=== PATIENT | male | born 1940 | race Caucasian/White ===

== ENCOUNTER 2016-05-07 06:24 | Inpatient (IN) | payer MEDICARE, BC ==
[2016-04-29 16:30] LABS: CALCIUM, SERUM 8.5 MG/DL (8.5-10.4); CHLORIDE, SERUM 108 MMOL/L (96-112); CO2 (CARBON DIOXIDE) 28 MMOL/L (24-34); CREATININE 1.16 MG/DL (0.70-1.30); GFR AFRICAN AMERICAN 72 ML/MIN (>=60); GFR NON AFRICAN AMERICAN 62 ML/MIN (>=60); GLUCOSE, SERUM 92 MG/DL (60-99); POTASSIUM, SERUM 3.9 MMOL/L (3.5-5.3); SODIUM, SERUM 143 MMOL/L (135-148)
[2016-04-29 16:34] LABS: BUN (BLOOD UREA NITROGEN) 24 MG/DL (6-23)
[2016-04-29 16:37] LABS: HEMATOCRIT 41.7 % (40.0-51.0); HEMOGLOBIN 14.1 g/dL (13.6-17.8)
--- NOTE | ~2016-05-07 | OP ---
Record Of Operation [facility] [address] [place]. [address] NAME: NATALIA INIGUEZ : 44 STATUS : ADM IN PAT#: [id number] AGE: 76 ADM/REG DATE : 05/07/16 MR#: [id number] REPORT SERV DATE: 05/07/16 DICTATED BY: RICARDO LIVINGSTON DATE: 05/07/16 REPORT STATUS : Draft TRANSCRIBED BY: MODL DATE: 05/07/16 DATE OF PROCEDURE: 05/07/2016 PREOPERATIVE DIAGNOSIS: Prostate cancer. POSTOPERATIVE DIAGNOSIS: Prostate cancer. PROCEDURE: Robotic-assisted laparoscopic radical prostatectomy with right laparoscopic pelvic lymph node dissection. SURGEON: Ricardo Livingston M.D. [employer] SUPERINTENDENT: JUAN Miller. ANESTHESIA: General. PREOPERATIVE INDICATIONS: 76-year-old male with a positive family history of prostate cancer, presented in October 2013 with a PSA of 4.8. Biopsies disclosed a Cristel 6 prostate cancer at the apex bilaterally. He elected active surveillance. He had progression of his PSA to 6.7 in October 2015 and surveillance biopsies identified a Cristel 7, 3+ 4 bilaterally. Three cores were positive on the right and one core at the left base. After reviewing his options, risks, alternatives, and benefits, he elected surgical management preferring a robotic approach. DESCRIPTION OF OPERATIVE PROCEDURE: Following adequate general anesthesia, the patient was placed in a modified lithotomy position well padded and secured to the table and placed in a steep Trendelenburg position. He was noted to be safely secured to the table and was returned to a level position where he was prepped and draped in the usual sterile fashion. A 16-Andorran catheter was placed in the bladder from the operative field. A pneumoperitoneum was achieved with a Veress needle. A 12 mm port was placed in the left upper quadrant with the Optiview system. A camera was placed into the abdomen, the abdomen inspected, and there were no abnormal findings. Under direct vision, the 3 robotic ports were placed as well as a left lower quadrant 5 mm port and a periumbilical 12 mm port. The patient was returned to a Trendelenburg position and docked to the robot. The bladder was taken down by incising laterally along the median umbilical ligaments to the level of the vas deferens bilaterally with the electrocautery obdulio. The space of Retzius was developed bluntly. Fat was dissected off the anterior surface of the prostate sharply. The endopelvic fascia was incised bilaterally and the levator muscle swept off the lateral surface of the prostate bilaterally. The dorsal vein complex was dissected out and controlled and divided with an endovascular IWONA stapler. The bladder neck was incised at its junction with the base of the prostate with the electrocautery spatula. The bladder was entered. The catheter was grasped with a ProGrasp grasper and used for anterior retraction on the prostate. The posterior bladder neck was developed and incised with the electrocautery spatula and a plane was bluntly developed Record Of Operation [facility] [address] [place]. [address] NAME: NATALIA INIGUEZ : 44 STATUS : ADM IN [facility]#: [id number] AGE: 76 ADM/REG DATE : 05/07/16 MR#: [id number] REPORT SERV DATE: 05/07/16 DICTATED BY: RICARDO LIVINGSTON DATE: 05/07/16 REPORT STATUS : Draft TRANSCRIBED BY: TIFFANIE DATE: 05/07/16 between the posterior bladder neck and prostate. Anterior Denonvilliers fascia was incised to expose the vas deferens and seminal vesicles. The vas deferens were dissected out bluntly, divided sharply, and the ends of the vas deferens grasped with the ProGrasp grasper for additional anterior retraction on the prostate. The seminal vesicles were dissected out bluntly, their blood supply controlled with interlocking clips and then divided sharply at their base. The bladder neck was inspected and did require some minor reconstruction with two [id number] 3-0 Vicryl sutures at the 3 and 9 o'clock position. Care was taken to avoid the ureteral orifices. Posterior Denonvilliers fascia was incised and a plane was bluntly developed between the rectum and prostate. The levator fascia was incised bilaterally and the neurovascular bundle was bluntly and easily dissected away from the posterolateral surface of the prostate bilaterally. The pedicles were controlled with interlocking clips and the specimen divided sharply with a round-tip scissors. The urethra was dissected out with the round-tip scissors. The dorsal vein complex was secured to the pubic periosteum with a figure-of- eight 2-0 Monocryl suture. The urethra was then divided sharply at the prostatourethral junction. The catheter was withdrawn. The posterior urethra was divided as well as the remaining apical attachments and the prostate was freed. A right laparoscopic pelvic lymph node dissection was performed with the margins of dissection being the anterior surface of the external iliac vein, the bifurcation of the external and internal iliac artery and the pelvic sidewall of both anterior and posterior to the obturator nerve. Margins were controlled with interlocking clips and the specimen divided sharply with a round-tip scissors. The nate specimen and prostate were placed in an EndoCatch sac and placed out of the view of the operative field. The pelvis was irrigated with sterile water and antibiotic solution and carefully inspected. There was excellent hemostasis and no apparent rectal injury. Posterior Denonvilliers fascia was reapproximated with posterior urethral plate with a running 3-0 V-Loc suture in a Santi stitch fashion. The urethrovesical anastomosis was performed with a running 3-0 V-Loc suture over a 20-Andorran catheter. The balloon was filled with 10 mL of sterile water. The bladder was irrigated with sterile water and there was a watertight anastomosis. A 19 Irineo drain was passed through one of the robotic ports and placed into the pelvis. The port was removed with its exit site demonstrating good hemostasis. The drain was fixed to the skin with 2-0 Prolene suture. The patient was de-docked from the robot and returned to a level position. The remaining trocars were removed under direct vision with their exit sites demonstrating good hemostasis. The periumbilical port was used to guide a transverse fascial incision to allow intact retrieval of the specimen. This was closed with 6 interrupted #1 Ethibond sutures. The periumbilical wound and port sites were irrigated with antibiotic solution and skin edges reapproximated with skin clips. The drain was left to grenade suction. The catheter was left to gravity drainage. Bandages were applied and the procedure was concluded. He was awakened from his anesthesia, had tolerated it well, and transferred to the recovery room in satisfactory condition. CLJ/MODL Record Of Operation [facility] [address]. [address] NAME: NATALIA INIGUEZ : 44 STATUS : ADM IN [facility]#: [id number] AGE: 76 ADM/REG DATE : 05/07/16 MR#: [id number] REPORT SERV DATE: 03/21/17 DICTATED BY: RICARDO LIVINGSTON DATE: 05/07/16 REPORT STATUS : Draft TRANSCRIBED BY: DUDLEYL DATE: 05/07/16 Ricardo Livingston M.D. / [id number] CC: Ricardo Livingston M.D.
[~2016-05-07 06:24] MED LIST: ASAB PO; BACDS PO; BACTROINT TOP; C5 PO; CLARIT10 PO; CORDARONE PO; COZ25 PO; LEVAQUIN750 MG PO; LOP25 PO; MIRALAXPKT PO; NORV10 PO; OXYCOD PO; PCET PO; PRAVACHOL40 MG PO; PRIN10 PO; RANITIDINE300 MG PO; ZYRTEC ALLGY10 MG PO
[2016-05-07 13:02] LABS: CREATININE 1.22 MG/DL (0.70-1.30); POTASSIUM, SERUM 4.3 MMOL/L (3.5-5.3)
[2016-10-28] MEDS ORDERED: COZ25 PO (09:37)
== END 2016-05-08 15:06 | disposition home or self-care (01) | DRG 708 ==
LOC: SDC/OF 06:24 → PACU 12:22 → 4SO 13:38
PROVIDERS: Urology
PROC: 0VT04ZZ Resection of Prostate, Percutaneous Endoscopic Approach (ICD-10-PCS; principal; 2016-05-07 07:30)
PROC: 07BC4ZX Excision of Pelvis Lymphatic, Percutaneous Endoscopic Approach, Diagnostic (ICD-10-PCS; principal; 2016-05-07 07:30)
PROC: 0VBQ4ZZ Excision of Bilateral Vas Deferens, Percutaneous Endoscopic Approach (ICD-10-PCS; principal; 2016-05-07 07:30)
PROC: 0VT34ZZ Resection of Bilateral Seminal Vesicles, Percutaneous Endoscopic Approach (ICD-10-PCS; principal; 2016-05-07 07:30)
PROC: 8E0W4CZ Robotic Assisted Procedure of Trunk Region, Percutaneous Endoscopic Approach (ICD-10-PCS; principal; 2016-05-07 07:30)
DX: C61 Malignant neoplasm of prostate (principal); I35.0 Nonrheumatic aortic (valve) stenosis; I10 Essential (primary) hypertension; K21.9 Gastro-esophageal reflux disease without esophagitis; Z79.82 Long term (current) use of aspirin
CPT/HCPCS: 80048; 82565; 84132; 85014; 85018; 88307; 88309; 88341; 88342; 93005; A9270-GY; J0690; J1885; J2250; J2405; J2710; J2795; J3010

== ENCOUNTER 2016-10-29 06:35 | Day surgery (SDC) | payer MEDICARE, BC ==
[~2016-10-29] VITALS: Ht 185.4 cm; Wt 89.8 kg
--- NOTE | ~2016-10-29 | EGD ---
EGD REPORT [facility] [address] [address] NAME: NATALIA INIGUEZ : 44 STATUS : REG [facility]#: [id number] AGE: 76 ADM/REG DATE : 10/29/16 MR#: [id number] REPORT SERV DATE: 10/29/16 DICTATED BY: MADIE MILTON DATE: 10/29/16 REPORT STATUS : Draft TRANSCRIBED BY: [employer] DATE: 10/29/16 Endoscopy Center Patient Name: Natalia Iniguez Date of : 1940 Attending MD: MADIE MILTON MD Procedure Date No Time: 10/29/2016 Procedure: Colonoscopy Indications: High risk colon cancer surveillance: Personal history of colonic polyps, FH of Colon Cancer - 1st degree relative Referring MD: SANDRA PLATA Medicines: as per anesthesia Complications: No immediate complications. Procedure: Pre-Anesthesia Assessment: - ASA Grade Assessment: III - A patient with severe systemic disease. After I obtained informed consent, the scope was passed under direct vision. Throughout the procedure, the patient's blood pressure, pulse, and oxygen saturations were monitored continuously. The [facility] [id number] was introduced through the anus and advanced to the cecum, identified by appendiceal orifice and ileocecal valve. The colonoscopy was performed without difficulty. The patient tolerated the procedure. The quality of the bowel preparation was adequate to identify polyps. Findings: The perianal and digital rectal examinations were normal. A few small and large-mouthed diverticula were found in the sigmoid colon and in the descending colon. Internal hemorrhoids were found during endoscopy and were mild. Impression: - Diverticulosis in the sigmoid colon and in the descending colon. - Internal hemorrhoids. Recommendation: - Repeat colonoscopy in 5 years for surveillance. Procedure Code(s): --- Professional --- 29026, Colonoscopy, flexible, proximal to splenic flexure; diagnostic, with or without collection of specimen(s) by brushing or washing, with or without colon decompression (separate procedure) Diagnosis Code(s): --- Professional --- K64.8, Other hemorrhoids [address] [facility] [address] NAME: NATALIA INIGUEZ : 44 STATUS : REG [facility]#: [id number] AGE: 76 ADM/REG DATE : 10/29/16 MR#: [id number] REPORT SERV DATE: 10/29/16 DICTATED BY: MADIE MILTON. DATE: 10/29/16 REPORT STATUS : Draft TRANSCRIBED BY: [employer] DATE: 10/29/16 K57.30, Diverticulosis of large intestine without perforation or abscess without bleeding Z86.010, Personal history of colonic polyps Z80.0, Family history of malignant neoplasm of digestive organs CPT copyright 2013 [employer]. All rights reserved. The codes documented in this report are preliminary and upon health information coder review may be revised to meet current compliance requirements. MADIE MILTON MD 10/29/2016 8:50 AM This report has been signed electronically. Number of Addenda: 0 Note Initiated On: 10/29/2016 8:13 AM Scope Withdrawal Time 0 hours 6 minutes [address] [place], [place] [address] [address]
== END 2016-10-29 23:59 | disposition home or self-care (01) ==
LOC: DMU 06:35
PROVIDERS: Internal Medicine Gastroenterology
PROC: 0DJD8ZZ Inspection of Lower Intestinal Tract, Via Natural or Artificial Opening Endoscopic (ICD-10-PCS; principal; 2016-10-29 08:00)
DX: K57.30 Diverticulosis of large intestine without perforation or abscess without bleeding (principal); K64.8 Other hemorrhoids; Z86.010 Personal history of colon polyps; Z85.46 Personal history of malignant neoplasm of prostate; Z80.0 Family history of malignant neoplasm of digestive organs; Z90.79 Acquired absence of other genital organ(s); Z79.82 Long term (current) use of aspirin; Z79.899 Other long term (current) drug therapy